=== PATIENT | male | born 1985 | race Caucasian/White ===

== ENCOUNTER 2021-04-22 20:05 | Emergency (ER) | payer OTHER ==
[2021-04-23] MEDS ORDERED: DELSYM30 MG/5 ML PO (00:46)
[2021-04-23] MEDS ORDERED: ZOFRAN4 MG PO (00:46)
[2021-04-23] MEDS ORDERED: IBUPROFEN600 MG PO (00:46)
== END 2021-04-23 00:50 | disposition home or self-care (01) ==
LOC: ER1 20:05
DX: U07.1 COVID-19 (principal); F17.210 Nicotine dependence, cigarettes, uncomplicated
CPT/HCPCS: 99284; U0002

== ENCOUNTER 2021-08-30 16:24 | Emergency (ER) | payer OTHER ==
[~2021-08-30 16:24] MED LIST: DELSYM30 MG/5 ML PO; IBUPROFEN600 MG PO; ZOFRAN4 MG PO
[2021-08-30] MEDS ORDERED: DELSYM30 MG/5 ML PO (19:15)
[2021-08-30] MEDS ORDERED: IBUPROFEN600 MG PO (19:15)
[2021-08-30] MEDS ORDERED: FLONASE 0.05% N16 GM (19:15)
== END 2021-08-30 19:23 | disposition home or self-care (01) ==
LOC: ER1 16:24
DX: J06.9 Acute upper respiratory infection, unspecified (principal); Z20.822 Contact with and (suspected) exposure to COVID-19; F17.210 Nicotine dependence, cigarettes, uncomplicated
CPT/HCPCS: 0240U; 99283

== ENCOUNTER 2022-02-10 18:37 | Emergency (ER) | payer OTHER ==
[~2022-02-10 18:37] MED LIST changes: +FLONASE 0.05% N16 GM
== END 2022-02-11 01:22 | disposition home or self-care (01) ==
LOC: ER1 18:37
DX: G56.01 Carpal tunnel syndrome, right upper limb (principal); F17.210 Nicotine dependence, cigarettes, uncomplicated
CPT/HCPCS: 99282

== ENCOUNTER 2022-03-15 22:15 | Emergency (ER) | payer OTHER | END 2022-03-16 00:23 | disposition home or self-care (01) | LOC: ER1 22:15 | DX: R53.1 Weakness (principal); Z20.822 Contact with and (suspected) exposure to COVID-19; F17.200 Nicotine dependence, unspecified, uncomplicated | CPT/HCPCS: 99284; U0002 ==